=== PATIENT | male | born 1965 | race Caucasian/White ===

== ENCOUNTER 2016-12-09 10:52 | Emergency (ER) | payer BC ==
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
[2016-12-09 12:53] VITALS: BP 174/92
== END 2016-12-09 12:57 | disposition left against medical advice (07) ==
LOC: UCCORT 10:52
DX: E86.0 Dehydration (principal); R50.9 Fever, unspecified; R53.83 Other fatigue; I10 Essential (primary) hypertension; F41.9 Anxiety disorder, unspecified; F32.9 Major depressive disorder, single episode, unspecified; Z88.0 Allergy status to penicillin; Z87.891 Personal history of nicotine dependence
CPT/HCPCS: 81003; 99212; G0463

== ENCOUNTER 2019-01-20 20:25 | Emergency (ER) | payer BC ==
[2019-01-20 21:08] VITALS: BP 157/108
--- NOTE | 2019-01-20 21:41 | UC ---
Respiratory Complaint HPI - HPI Summary HPI Summary: 53-year-old male comes in with a chief complaint of one week of upper respiratory tract infection symptoms. He's been started with a cough chest congestion. The congestions been getting worse. Over the last 2 days he started developing shortness of breath and chest pressure with coughing. Today developed fever he took some acetaminophen which helped with the fever. Denies any wheezing or history of asthma. No pedal edema. Patient was more tired the last several days. - History of Current Complaint Chief Complaint: UCGeneralIllness Stated Complaint: FEVER,CHILLS,COUGH Time Seen by Provider: 01/20/19 21:28 Pain Intensity: 6 - Allergies/Home Medications Allergies/Adverse Reactions: Allergies Allergy/AdvReac Type Severity Reaction Status Date / Time Penicillins Allergy Unknown Verified 01/20/19 21:12 Reaction Details Home Medications: Home Medications Acetaminophen [Tylenol Extra Strength] 2 tab PO ONCE 01/20/19 [History Confirmed 01/20/19] Labetalol TAB* [Trandate TAB*] 200 mg PO BID 01/20/19 [History Confirmed ] Lisinopril 20 mg PO DAILY 01/20/19 [History Confirmed 01/20/19] PARoxetine HCL TAB* [Paxil TAB*] 40 mg PO DAILY 01/20/19 [History Confirmed 11/01] busPIRone TAB* [Buspar TAB*] 1 tab PO DAILY 01/20/19 [History Confirmed 01/20/19 ] PMH/Surg Hx/FS Hx/Imm Hx Previously Healthy: Yes Cardiovascular History: Hypertension - Surgical History Surgical History: Yes Surgery Procedure, Year, and Place: L knee surgery - Family History Known Family History: Positive: Hypertension - Social History Alcohol Use: None Alcohol Amount: pt quit november 2018 Substance Use Type: None Smoking Status (MU): Former Smoker Type: Cigarettes Amount Used/How Often: 1 ppd (hx) Length of Time of Smoking/Using Tobacco: 15 years When Did the Patient Quit Smoking/Using Tobacco: 1993 - Immunization History Most Recent Influenza Vaccination: no Review of Systems All Other Systems Reviewed And Are Negative: Yes Constitutional: Positive: Fever Skin: Positive: Negative Eyes: Positive: Negative ENT: Positive: Sore Throat, Nasal Discharge, Sinus Congestion Respiratory: Positive: Shortness Of Breath, Cough, Other - SEE HPI Cardiovascular: Positive: Chest Pain, Other - SEE HPI Gastrointestinal: Positive: Negative Motor: Positive: Negative Neurovascular: Positive: Negative Musculoskeletal: Positive: Negative. Negative: Edema Neurological: Positive: Negative Psychological: Positive: Negative Is Patient Immunocompromised?: No Physical Exam Triage Information Reviewed: Yes Appearance: No Pain Distress, Well-Nourished, Ill-Appearing - MILD Vital Signs: Initial Vital Signs Temp 97.6 F 01/20/19 21:01 Pulse 68 01/20/19 21:01 Resp 18 01/20/19 21:01 BP 157/108 01/20/19 21:01 Pulse Ox 99 01/20/19 21:01 Vital Signs Reviewed: Yes Eye Exam: Normal Eyes: Positive: Conjunctiva Clear ENT: Positive: Pharyngeal erythema, Nasal congestion, TMs normal Neck: Positive: Supple Respiratory: Positive: No respiratory distress, Rhonchi Cardiovascular: Positive: RRR Musculoskeletal: Positive: Strength Intact, ROM Intact, No Edema - No calf tenderness Neurological: Positive: Alert Psychological: Positive: Age Appropriate Behavior Skin Exam: Normal Respiratory Course/Dx - Course Course Of Treatment: Discussed the chest x-ray with the patient a do not see any infiltrate or any acute disease process radiologist reading is pending. Patient's been having chest tightness with his infection. We discussed cardiac causes of chest pain and I recommended further evaluation in the emergency department if he had any chest pains or concerns of cardiac causes of chest pain. Chest tightness here his been with his upper respiratory tract infection. Denies any wheezes or history of COPD or asthma therefore no albuterol at this time. Patient is to follow-up his primary care doctor is to go the emergency department if he worsens or has any questions or concerns. - Differential Dx/Diagnosis Provider Diagnosis: Bronchitis Discharge ED - Sign-Out/Discharge Documenting (check all that apply): Patient Departure All imaging exams completed and their final reports reviewed: No - Discharge Plan Condition: Stable Disposition: HOME Prescriptions: DOXYcycline CAP(*) [DOXYcycline 100MG CAP(*)] 100 mg PO BID #18 cap Patient Education Materials: Acute Bronchitis (ED) Referrals: Michael Chung MD [Primary Care Provider] - Additional Instructions: FOLLOW UP WITH YOUR DOCTOR IF NOT COMPLETELY IMPROVED. GO TO THE EMERGENCY DEPARTMENT SOONER IF NOT IMPROVING OR YOUR CONDITION WORSENS ; CHEST PAIN, SHORTNESS OF BREATH OR ANY QUESTIONS OR CONCERNS - Billing Disposition and Condition Condition: STABLE Disposition: Home
[2019-01-20] MEDS ORDERED: DOXYcycline CAP(*) 100 MG PO ONE ×2 (22:06→22:07)
--- NOTE | 2019-01-21 07:36 | UC ---
- Progress Note Progress Note: xray report chest xray : IMPRESSION: NO ACTIVE CARDIOPULMONARY DISEASE. Course/Dx - Diagnoses Provider Diagnoses: Bronchitis Discharge ED - Sign-Out/Discharge Documenting (check all that apply): Patient Departure All imaging exams completed and their final reports reviewed: Yes - Discharge Plan Condition: Stable Disposition: HOME Prescriptions: DOXYcycline CAP(*) [DOXYcycline 100MG CAP(*)] 100 mg PO BID #18 cap Patient Education Materials: Acute Bronchitis (ED) Referrals: Michael Chung MD [Primary Care Provider] - Additional Instructions: FOLLOW UP WITH YOUR DOCTOR IF NOT COMPLETELY IMPROVED. GO TO THE EMERGENCY DEPARTMENT SOONER IF NOT IMPROVING OR YOUR CONDITION WORSENS ; CHEST PAIN, SHORTNESS OF BREATH OR ANY QUESTIONS OR CONCERNS - Billing Disposition and Condition Condition: STABLE Disposition: Home
== END 2019-01-20 22:16 | disposition home or self-care (01) ==
LOC: UCCORT 20:25
DX: J40 Bronchitis, not specified as acute or chronic (principal); R09.81 Nasal congestion; R09.89 Other specified symptoms and signs involving the circulatory and respiratory systems; I10 Essential (primary) hypertension; Z88.0 Allergy status to penicillin; Z79.899 Other long term (current) drug therapy; Z87.891 Personal history of nicotine dependence
CPT/HCPCS: 71046; 99212; A9270-GY; G0463

== ENCOUNTER 2019-06-20 08:12 | Emergency (ER) | payer BC ==
[2019-06-20 08:50] VITALS: BP 112/68
--- NOTE | 2019-06-20 09:07 | UC ---
Respiratory Complaint HPI - HPI Summary HPI Summary: 53 yo male ill x 4 days cough feverish chills muscle aches ELIZONDO nasal congestion post nasal drip no n/v/d - History of Current Complaint Chief Complaint: UCRespiratory Stated Complaint: ST,COUGH Time Seen by Provider: 06/20/19 09:01 Hx Obtained From: Patient Onset/Duration: Gradual Onset, Lasting Days Timing: Constant Severity Initially: Mild Severity Currently: Moderate Pain Intensity: 4 Pain Scale Used: 0-10 Numeric Character: Cough: Productive Aggravating Factors: Nothing Associated Signs And Symptoms: Positive: Fever, Chills, Wheezing, Nasal Congestion, Sinus Discomfort - Allergies/Home Medications Allergies/Adverse Reactions: Allergies Allergy/AdvReac Type Severity Reaction Status Date / Time Penicillins Allergy Unknown Verified 06/20/19 08:43 Reaction Details Home Medications: Home Medications hydrALAZINE TAB* [Apresoline TAB*] 100 mg PO BID 01/10/14 [History Confirmed 10/03] Acetaminophen [Tylenol Extra Strength] 1,000 tab PO Q6H PRN 01/20/19 [History Confirmed 06/20/19] Labetalol TAB* [Trandate TAB*] 200 mg PO BID 01/20/19 [History Confirmed ] PARoxetine HCL TAB* [Paxil TAB*] 40 mg PO DAILY 01/20/19 [History Confirmed 10/03] busPIRone TAB* [Buspar TAB*] 5 mg PO DAILY 01/20/19 [History Confirmed 06/20/19] Azithromycin TAB* [Zithromax TAB*] 250 mg PO DAILY #6 tab 06/20/19 [Rx] lisinopriL [Lisinopril] 40 mg PO DAILY 06/20/19 [History Confirmed 06/20/19] predniSONE 20 mg TAB [Deltasone 20 MG TAB*] 40 mg PO DAILY #8 tab 06/20/19 [Rx] PMH/Surg Hx/FS Hx/Imm Hx Previously Healthy: Yes Cardiovascular History: Hypertension Respiratory History: Bronchitis, Pneumonia Other Respiratory History: has needed to use inhalers in the past - Surgical History Surgical History: Yes Surgery Procedure, Year, and Place: Left Knee Surgery s/p , 1984 - Family History Known Family History: Positive: Hypertension - Social History Alcohol Use: None Alcohol Amount: pt quit november 2018 Substance Use Type: Marijuana Substance Use Comment - Amount & Last Used: Daily Smoking Status (MU): Former Smoker Type: Cigarettes Amount Used/How Often: 1 ppd (hx) Length of Time of Smoking/Using Tobacco: >1 PPD x 15 Years When Did the Patient Quit Smoking/Using Tobacco: 1993 - Immunization History Most Recent Influenza Vaccination: no Review of Systems All Other Systems Reviewed And Are Negative: Yes Constitutional: Positive: Fever, Chills, Fatigue Skin: Positive: Negative Eyes: Positive: Negative ENT: Positive: Nasal Discharge, Sinus Congestion, Sinus Pain/Tenderness Respiratory: Positive: Cough Cardiovascular: Positive: Negative Gastrointestinal: Positive: Negative Genitourinary: Positive: Negative Motor: Positive: Negative Neurovascular: Positive: Negative Musculoskeletal: Positive: Other: - cystic swelling right wrist after chipping ice Neurological/Mental Status: Positive: Negative Psychological: Positive: Negative Physical Exam Triage Information Reviewed: Yes Appearance: Well-Appearing, No Pain Distress, Well-Nourished Vital Signs: Initial Vital Signs Temp 98.1 F 06/20/19 08:40 Pulse 86 06/20/19 08:40 Resp 18 06/20/19 08:40 BP 112/68 06/20/19 08:40 Pulse Ox 100 06/20/19 08:40 Vital Signs Reviewed: Yes Eyes: Positive: Conjunctiva Clear ENT: Positive: Hearing grossly normal, Nasal congestion, Nasal drainage, Sinus tenderness, Uvula midline. Negative: Tonsillar swelling, Tonsillar exudate, Trismus, Muffled voice, Hoarse voice, Dental tenderness Dental Exam: Normal Neck: Positive: Supple, Nontender, No Lymphadenopathy Respiratory: Positive: No respiratory distress, No accessory muscle use, Rhonchi , Wheezing Cardiovascular: Positive: RRR, No Murmur Musculoskeletal: Positive: ROM Intact, No Edema Neurological: Positive: Alert Psychological Exam: Normal Skin Exam: Normal Images Hands: 1 - ganglion cyst Respiratory Course/Dx - Differential Dx/Diagnosis Provider Diagnosis: Bronchitis, Ganglion cyst of volar aspect of right wrist Discharge ED - Sign-Out/Discharge Documenting (check all that apply): Patient Departure All imaging exams completed and their final reports reviewed: Yes - Discharge Plan Condition: Stable Disposition: HOME Patient Education Materials: Bronchospasm (ED), Ganglion Cysts (ED) Referrals: Michael Chung MD [Primary Care Provider] - 3 Days (if not markedly improved) Additional Instructions: the ganglion cyst may resolve on it's own see your MD if symptoms worsen or if it is not better in 2-4 weeks - Billing Disposition and Condition Condition: STABLE Disposition: Home
[2019-06-20 09:28] LABS: Influenza A Molecular Negative (Negative); Influenza B Molecular Negative (Negative)
[2019-06-20] MEDS ORDERED: Albuterol HFA INHALER* 8 gm MDI INH ONE (09:39)
== END 2019-06-20 09:56 | disposition home or self-care (01) ==
LOC: UCCORT 08:12
DX: J40 Bronchitis, not specified as acute or chronic (principal); M67.431 Ganglion, right wrist; R51 Headache; R09.81 Nasal congestion; R09.82 Postnasal drip; I10 Essential (primary) hypertension; Z88.0 Allergy status to penicillin; Z87.01 Personal history of pneumonia (recurrent); Z79.899 Other long term (current) drug therapy; Z87.891 Personal history of nicotine dependence
CPT/HCPCS: 71046; 99213; A9270-GY; G0463; J7512

== ENCOUNTER 2019-06-28 12:19 | Emergency (ER) | payer BC ==
[2019-06-28 14:34] VITALS: BP 168/108
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
[2019-06-28 15:05] LABS: Influenza A Molecular Negative (Negative); Influenza B Molecular Negative (Negative)
== END 2019-06-28 15:20 | disposition home or self-care (01) ==
LOC: UCCORT 12:19
DX: R05 Cough (principal); R09.89 Other specified symptoms and signs involving the circulatory and respiratory systems; Z87.891 Personal history of nicotine dependence; Z88.0 Allergy status to penicillin
CPT/HCPCS: 93005; 99212; G0463

== ENCOUNTER 2019-08-01 08:25 | Emergency (ER) | payer BC, OTHER ==
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
[2019-08-01 09:51] VITALS: BP 156/105
== END 2019-08-01 10:07 | disposition home or self-care (01) ==
LOC: UCCORT 08:25
DX: J40 Bronchitis, not specified as acute or chronic (principal); J32.9 Chronic sinusitis, unspecified; Z20.828 Contact with and (suspected) exposure to other viral communicable diseases; I10 Essential (primary) hypertension; Z79.899 Other long term (current) drug therapy; Z88.0 Allergy status to penicillin; Z87.891 Personal history of nicotine dependence
CPT/HCPCS: 71046; 87635; 99212; G0463